=== PATIENT | female | born 1990 | race Caucasian/White ===

== ENCOUNTER 2019-07-28 23:17 | Emergency (ER) | payer OTHER ==
[~2019-07-28] VITALS: Ht 160 cm; Wt 68.5 kg
[2019-07-28 23:28] VITALS: Ht 160 cm; Wt 68.5 kg
[2019-07-29 00:49] VITALS: BP 120/70
== END 2019-07-29 00:49 | disposition home or self-care (01) ==
LOC: ED 23:17
DX: M54.2 Cervicalgia (principal); S16.1XXA Strain of muscle, fascia and tendon at neck level, initial encounter; V49.59XA Passenger injured in collision with other motor vehicles in traffic accident, initial encounter; Y93.I9 Activity, other involving external motion; Y92.413 State road as the place of occurrence of the external cause; Y99.8 Other external cause status